=== PATIENT | male | born 1980 | race Two or more races ===

== ENCOUNTER 2025-09-09 12:09 | Inpatient (IN) | payer MEDICAID ==
[~2025-09-09] VITALS: Ht 175.3 cm; Wt 72.4 kg
[2025-09-09] MEDS: LORazepam 2 MG/ML VIAL IM ONE (13:38)
[2025-09-09 15:45] LABS: COVID AG,FIA SOURCE NASAL SWAB
[2025-09-09] MEDS ORDERED: ZOLPIDEM TARTRATE 10 MG TABLET PO PRN (15:45)
[2025-09-09 16:17] LABS: SARS-COV2 (COVID) ANTIGEN,FIA Negative (Negative)
[2025-09-09 16:47] LABS: PLATELET COUNT (AUTO) 223 K/uL (150-450); RED BLOOD CELL COUNT(AUTO) 4.16 MIL/uL (4.50-5.90); RED CELL DISTRIBUTION WIDTH 14.8 % (11.5-14.5); WHITE BLOOD COUNT (AUTO) 12.6 K/uL (4.5-11.0)
[2025-09-09 16:56] LABS: CALCIUM, TOTAL 9.1 mg/dL (8.8-10.5); CREATININE 0.73 mg/dL (0.60-1.30); GLOMERULAR FILTR. RATE CALC > 60 mL/min (>60); GLUCOSE,RANDOM 121 mg/dL (70-110); SODIUM SERUM 141 mmol/L (136-145); UREA NITROGEN, BLOOD 10 mg/dL (7-18)
[2025-09-09 20:50] VITALS: O2SAT 98
[2025-09-09 22:42] VITALS: BP 121/83; PULSE 90; RESP 18; TEMP 98.5
[2025-09-10] MEDS ORDERED: LOPERAMIDE HCL 2 MG CAPSULE PO PRN (06:00)
[2025-09-10] MEDS ORDERED: MAGNESIUM HYDROXIDE SUSPENSION 30 ML UDCUP PO PRN (06:00)
[2025-09-10] MEDS ORDERED: MAG HYDROX/ALUMINUM HYD/SIMETH ES 30 ML SUSPENSION UDCUP PO PRN (06:00)
[2025-09-10] MEDS ORDERED: DOCUSATE SODIUM 100 MG CAPSULE PO PRN (06:00)
[2025-09-10] MEDS ORDERED: IBUPROFEN 400 MG TABLET PO PRN (06:00)
[2025-09-10] MEDS ORDERED: PETROLATUM,WHITE 28 GM JELLY TP PRN (06:00)
[2025-09-10] MEDS ORDERED: NICOTINE 14 MG/24 HOUR PATCH TD PRN (06:00)
[2025-09-10] MEDS ORDERED: ACETAMINOPHEN 325 MG TABLET PO PRN (06:00)
[2025-09-10] MEDS ORDERED: ONDANSETRON 4 MG TABLET PO PRN (06:00)
[2025-09-10] MEDS ORDERED: GuaiFENesin/D-METHORPHAN [SUGAR-FREE] 200-20MG/10 ML SYRUP UDCUP PO PRN (06:00)
[2025-09-10] MEDS ORDERED: ALBUTEROL SULFATE HFA 90 MCG/PUFF 8 GM INHALER IH PRN (06:00)
[2025-09-10 08:35] VITALS: BP 127/90; PULSE 99; RESP 18; TEMP 97.3; O2SAT 98
[2025-09-10] MEDS: LURASIDONE HCL 20 MG TABLET PO SCH (11:45)
[2025-09-11 08:18] VITALS: BP 119/79; PULSE 95; RESP 16; TEMP 98; O2SAT 98
[2025-09-12 08:30] VITALS: RESP 18
[2025-09-13 08:07] VITALS: RESP 19
[2025-09-13 20:17] VITALS: RESP 18
[2025-09-14 08:12] VITALS: RESP 18
[2025-09-14 20:18] VITALS: RESP 18
[2025-09-15 08:54] VITALS: RESP 16
[2025-09-15] MEDS ORDERED: LURA20TA PO (16:39)
[2025-09-15] MEDS ORDERED: LORazepam 2 MG/ML VIAL ONE (17:20)
[2025-09-15] MEDS: LORazepam 2 MG/ML VIAL IM ONE (18:28)
[2025-09-16 08:23] VITALS: RESP 15
== END 2025-09-16 13:15 | disposition left against medical advice (07) | DRG 750 ==
LOC: EMS 12:09 → EDSEX 12:09 → UNDOADMIN 15:34 → EDH 15:34 → B3A 21:31
PROVIDERS: ADMIT Psychiatry & Neurology Child & Adolescent Psychiatry; ATTEND Psychiatry & Neurology Child & Adolescent Psychiatry
PROC: GZ56ZZZ Individual Psychotherapy, Supportive (ICD-10-PCS; 2025-09-10)
PROC: GZ58ZZZ Individual Psychotherapy, Cognitive-Behavioral (ICD-10-PCS; 2025-09-10)
PROC: GZHZZZZ Group Psychotherapy (ICD-10-PCS; principal; 2025-09-11)
PROC: GZ52ZZZ Individual Psychotherapy, Cognitive (ICD-10-PCS; 2025-09-15)
DX: F20.0 Paranoid schizophrenia (principal); Z78.1 Physical restraint status; D64.9 Anemia, unspecified; I10 Essential (primary) hypertension; Z20.822 Contact with and (suspected) exposure to COVID-19; D72.829 Elevated white blood cell count, unspecified; R73.9 Hyperglycemia, unspecified; G47.00 Insomnia, unspecified; Z53.29 Procedure and treatment not carried out because of patient's decision for other reasons; Z91.148 Patient's other noncompliance with medication regimen for other reason
CPT/HCPCS: 80048; 85025; 87081; 96372; 99285; 99291; G0480; J1200; J1630; J2060